=== PATIENT | male | born 1945 | race Caucasian/White ===

== ENCOUNTER 2021-11-17 10:40 | Outpatient (CLI) | payer OTHER | END 2021-11-17 10:41 | disposition home or self-care (01) | LOC: CSHLAB 10:40 | PROVIDERS: ATTEND Internal Medicine Gastroenterology | DX: Z20.822 Contact with and (suspected) exposure to COVID-19 (principal); Z12.11 Encounter for screening for malignant neoplasm of colon | CPT/HCPCS: U0003; U0005 ==

== ENCOUNTER 2021-11-20 08:46 | Day surgery (SDC) | payer OTHER ==
[2021-11-18 14:19] VITALS: BMI 28.5
[2021-11-20] MEDS ORDERED: Lidocaine 1% MPF 2 ML VIAL ONE (10:48)
[2021-11-20] MEDS ORDERED: Lidocaine 1% PF 5 ML VIAL ONE (11:10)
[2021-11-20] MEDS ORDERED: PROPOFOL 40 ML ONE (11:10)
== END 2021-11-20 12:30 | disposition home or self-care (01) ==
LOC: CSHSDC 08:46
PROVIDERS: ATTEND Internal Medicine Gastroenterology
PROC: 0DJD8ZZ Inspection of Lower Intestinal Tract, Via Natural or Artificial Opening Endoscopic (ICD-10-PCS; principal; 2021-11-20)
DX: Z12.11 Encounter for screening for malignant neoplasm of colon (principal); K57.30 Diverticulosis of large intestine without perforation or abscess without bleeding; K64.9 Unspecified hemorrhoids; I10 Essential (primary) hypertension; I25.10 Atherosclerotic heart disease of native coronary artery without angina pectoris; E78.5 Hyperlipidemia, unspecified; Z86.010 Personal history of colon polyps; Z79.02 Long term (current) use of antithrombotics/antiplatelets; Z79.899 Other long term (current) drug therapy; Z87.891 Personal history of nicotine dependence; Z95.1 Presence of aortocoronary bypass graft; Z95.5 Presence of coronary angioplasty implant and graft
CPT/HCPCS: J2704

== ENCOUNTER 2022-01-10 10:37 | Emergency (ER) | payer OTHER ==
[2022-01-10] MEDS ORDERED: Ketorolac Tromethamine 30 MG/ML VIAL ONE (12:12)
== END 2022-01-10 12:15 | disposition home or self-care (01) ==
LOC: CSHERS 10:37
DX: M46.1 Sacroiliitis, not elsewhere classified (principal); M25.551 Pain in right hip; M54.31 Sciatica, right side; I25.2 Old myocardial infarction; E11.9 Type 2 diabetes mellitus without complications; I10 Essential (primary) hypertension; Z87.891 Personal history of nicotine dependence
CPT/HCPCS: 96372; J1885